=== PATIENT | male | born 1945 | race Caucasian/White ===

== ENCOUNTER 2017-11-11 12:21 | Observation (INO) ==
[2017-11-11 13:59] LABS: Color,Urine Orange (Yellow)
[2017-11-11 14:00] LABS: Clarity,Urine Clear (Clear)
--- NOTE | 2017-11-11 14:01 | Emergency Department Note ---
Disposition Clinical Impression: Diverticulitis Abdominal pain Qualifiers: Abdominal location: generalized Qualified Code(s): R10.84 - Generalized abdominal pain Diarrhea Qualifiers: Diarrhea type: unspecified type Qualified Code(s): R19.7 - Diarrhea, unspecified Disposition: Admitted As Inpatient Condition: Good Referrals: Eula Little CNP [Primary Care Provider] - Forms: ED Satisfaction Letter Time of Disposition: 15:45 General Adult HPI - General Chief complaint: ED Weakness Stated complaint: weakness,diarrhea,abd pain Time Seen by Provider: 11/11/17 13:42 Source: patient Limitations: no limitations Nursing Notes Reviewed: Yes Vital Signs Reviewed: Yes - History of Present Illness HPI Narrative: 10 day history of nonbloody diarrhea. Recent antibiotic use for a UTI. Denies any recent travel or well water consumption. Does have a history of prostate cancer. Also complaining of a 10 day history of abdominal pain. He describes it as a pain. He is unable to discuss it further. Denies any fevers. Does report chilling. No nausea or vomiting. Pain Scale: 7 - Related Data Home Medications Medication Instructions Recorded Confirmed Aspirin [Lo-Dose Aspirin EC] 81 mg PO DAILY 05/03/17 09/12/17 Citalopram Hydrobromide 40 mg PO QPM 05/03/17 09/12/17 [Citalopram HBr] Diphenia 2 mg PO AD 05/03/17 09/12/17 Furosemide [Lasix] 20 mg PO DAILY 05/03/17 09/12/17 Gabapentin [Neurontin] 600 mg PO QPM 05/03/17 09/12/17 Hydroxychloroquine [Plaquenuil] 200 mg PO DAILY 05/03/17 09/12/17 Levothyroxine [Synthroid] 100 mcg PO 0630 05/03/17 09/12/17 Multivitamin [One Daily Essential] 1 each PO DAILY 05/03/17 09/12/17 Omeprazole [PriLOSEC] 20 mg PO DAILY 05/03/17 09/12/17 Potassium 99 mg PO DAILY 05/03/17 09/12/17 Sulfasalazine [Azulfidine] 1,000 mg PO BID 05/03/17 09/12/17 Tramadol HCl [Ultram] 50 mg PO HS PRN 05/03/17 09/12/17 buPROPion HCl [Zyban] 150 mg PO DAILY 05/03/17 09/12/17 clonazePAM [Klonopin] 2 mg PO TID 05/03/17 09/12/17 hydrOXYzine pamoate [HydrOXYzine 25 mg PO TID PRN 05/03/17 09/12/17 Pamoate] traZODone [TraZODone] 50 mg PO HS 05/03/17 09/12/17 Previous Rx's Medication Instructions Recorded Tamsulosin [Flomax] 0.4 mg PO DAILY #30 cap.er.24h 05/03/17 Docusate [Colace] 100 mg PO BID PRN #60 capsule 06/25/17 Polyethylene Glycol 3350 [MiraLAX 1 scoop PO DAILY #510 gm 07/03/17 Powder Bulk 17.9 Oz] Phenazopyridine [Pyridium] 100 mg PO TID PRN #90 tablet 07/17/17 Allergies Allergy/AdvReac Type Severity Reaction Status Date / Time No Known Allergies Allergy Verified 06/03/17 08:42 All systems ED: reviewed and negative except as stated. Constitutional: Reports: chills. Denies: fever Cardiovascular: Denies: chest pain Respiratory: Denies: cough, dyspnea Gastrointestinal: Reports: abdominal pain, diarrhea. Denies: nausea, vomiting, melena, hematochezia Genitourinary: Reports: other (Trouble starting his stream, no burning). Denies : dysuria, hematuria Musculoskeletal: Reports: back pain (Left CVA tenderness) Neurological: Reports: weakness Past Medical History - Past Medical History Attestation: Yes The following information was validated with the patient. Source: patient Medical history: Reports: no medical history Psychiatric history: Reports: depression - Social History Smoking Status: Current every day smoker Smokeless Tobacco Status: No Alcohol use: Reports: occasionally Drug use: Reports: none Physical Exam - General Limitations: other (Patient is very hard of hearing.) General appearance: alert, in distress (Appears in pain) - Head Head exam: atraumatic, normocephalic, normal inspection - Eye Eye exam: Present: normal appearance, PERRL, EOMI. Absent: scleral icterus - ENT ENT exam: normal exam, normal oropharynx, mucous membranes moist - Neck Neck exam: Present: normal inspection, full ROM, trachea midline - Chest Chest inspection: Present: normal inspection, symmetric chest wall rise - Respiratory Respiratory exam: Present: normal lung sounds bilaterally. Absent: respiratory distress, accessory muscle use - Cardiovascular Cardiovascular exam: Present: regular rate, normal rhythm, normal heart sounds - Abdominal Exam Abdominal exam: Present: tenderness, guarding, other (Patient had pain out of proportion on palpation of his abdomen.). Absent: distention - Extremities Exam Extremities exam: Present: normal inspection, full ROM, normal capillary refill. Absent: tenderness, pedal edema - Back Exam Back exam: Present: CVA tenderness (L) - Neurological Exam Neurological exam: Present: alert, oriented X3 - Psychiatric Psychiatric exam: Present: normal affect, normal mood - Skin Skin exam: Present: warm, dry, intact, normal color. Absent: rash, cyanosis, diaphoresis Course Course Narrative: Male patient presenting to the emergency department with a 10 day history of diarrhea. He states that he was on antibiotics for a UTI recently as well as medication to help him urinate. He does have a history of prostate cancer. He states that he does not believe he is taking this medication anymore. As I ask him about his medical history he is unaware of most of it. He states that I need ask "Tere." On exam his lung sounds are clear heart tones are normal. His abdomen is tender to palpation. He has pain out of proportion with exam. He is peritoneal on exam. His abdomen is not rigid however with light palpation hematemesis. He does not appear to be histrionic. He definitely appears to be stoic. We will get basic lab workup and do a CT of patient's abdomen. We will also provide him with a fluid challenge. He states that it said everything he had this morning to get dressed to be able to come into the hospital. He is very hard of hearing. - Reevaluation(s) Reevaluation #1: Patient was exquisitely tender on exam. He has had some relief with the fentanyl. He does have diverticulitis on CT scan. We will start patient on Cipro Flagyl and admitted to the hospital. He will need serial abdominal exams due to his clinical presentation. He is agreeable with this. Time: 15:21 Vital Signs Temperature 98.2 F 11/11/17 12:23 Pulse Rate 77 11/11/17 12:23 Respiratory Rate 18 11/11/17 12:23 Blood Pressure 113/67 11/11/17 12:23 O2 Sat by Pulse Oximetry 95 11/11/17 12:23 Temperature 98.2 F 11/11/17 12:23 Pulse Rate 59 11/11/17 17:13 Respiratory Rate 16 11/11/17 17:13 Blood Pressure 101/56 11/11/17 17:13 O2 Sat by Pulse Oximetry 93 11/11/17 17:13 Oxygen Delivery Oxygen Delivery Room Air Medical Decision Making - Medical Records Medical records reviewed: Yes I reviewed the patient's medical records. - Lab Data Lab results reviewed: Yes I reviewed the patient's lab results. Result diagrams: 11/11/17 13:46 11/11/17 13:46 Lab Results 11/11/17 11/11/17 11/11/17 Range/Units 13:46 13:46 13:46 WBC 6.3 (4.3-11.1) K/mcL RBC 3.90 L (4.19-5.50) M/mcL Hgb 12.6 L (12.9-16.9) g/dL Hct 37.6 (37.5-50.1) % MCV 96.4 (83.0-100.0) fL MCH 32.3 (28.0-33.3) pg MCHC 33.5 (31.6-35.5) g/dL RDW 12.4 (11.5-14.5) % Plt Count 169 (140-400) K/mcL MPV 10.6 (9.4-12.4) fL Immature Gran % 0.2 (0-4) % Seg Neutrophils % 79.2 % Lymphocytes % 11.8 % Monocytes % 8.0 % Eosinophils % 0.5 % Basophils % 0.3 % Neutrophils # 5.0 (1.6-8.9) K/mcL Lymphocytes # 0.7 (0.6-4.6) K/mcL Monocytes # 0.5 (0.0-1.3) K/mcL Eosinophils # 0.0 (0.0-0.6) K/mcL Basophils # 0.0 (0.0-0.2) K/mcL Sodium 135 L (136-145) mEq/L Potassium 4.2 (3.5-5.1) mEq/L Chloride 102 (98-107) mEq/L Carbon Dioxide 23 (23-29) mEq/L BUN 22 (8-23) mg/dL Creatinine 1.71 H (0.70-1.30) mg/dL Est GFR ( Amer) 48 L (> 60) Est GFR (Non-Af Amer) 39 L (> 60) BUN/Creatinine Ratio 13 (6-26) Glucose 90 (70-105) mg/dL Calculated Osmolality 283 (280-300) Lactic Acid (0.5-2.2) mmol/L Calcium 9.5 (8.6-10.3) mg/dL Total Bilirubin 0.8 (0.3-1.0) mg/dL Direct Bilirubin 0.3 H (0.0-0.2) mg/dL Indirect Bilirubin 0.5 (0.0-1.2) mg/dL AST 48 H (13-39) Units/L ALT 30 (7-52) Units/L Alkaline Phosphatase 79 (34-104) Units/L Serum Total Protein 7.3 (6.4-8.9) g/dL Albumin 4.4 (3.5-5.7) g/dL Globulin 2.9 (2.4-3.5) g/dL Albumin/Globulin Ratio 1.5 (1.1-2.2) Lipase 5 L (11-82) Units/L Ur Specimen Adequacy See below A Urine Color [place] A (Yellow) Urine Clarity Clear (Clear) Urine pH TNP Ur Specific [place] TNP Urine Protein TNP Urine Glucose (UA) TNP Urine Ketones TNP Urine Blood TNP Urine Nitrite TNP Urine Bilirubin TNP Urine Urobilinogen TNP Ur Leukocyte Esterase TNP Urine Microscopic RBC 0-3 (0-3) per hpf Urine Microscopic WBC 3-5 H (0-3) per hpf Ur Squamous Epith Cells Few (None-Few) per lpf Urine Bacteria Few (None-Few) per hpf Hyaline Casts Few (None-Few) per lpf 11/11/17 Range/Units 13:46 WBC (4.3-11.1) K/mcL RBC (4.19-5.50) M/mcL Hgb (12.9-16.9) g/dL Hct (37.5-50.1) % MCV (83.0-100.0) fL MCH (28.0-33.3) pg MCHC (31.6-35.5) g/dL RDW (11.5-14.5) % Plt Count (140-400) K/mcL MPV (9.4-12.4) fL Immature Gran % (0-4) % Seg Neutrophils % % Lymphocytes % % Monocytes % % Eosinophils % % Basophils % % Neutrophils # (1.6-8.9) K/mcL Lymphocytes # (0.6-4.6) K/mcL Monocytes # (0.0-1.3) K/mcL Eosinophils # (0.0-0.6) K/mcL Basophils # (0.0-0.2) K/mcL Sodium (136-145) mEq/L Potassium (3.5-5.1) mEq/L Chloride (98-107) mEq/L Carbon Dioxide (23-29) mEq/L BUN (8-23) mg/dL Creatinine (0.70-1.30) mg/dL Est GFR ( Amer) (> 60) Est GFR (Non-Af Amer) (> 60) BUN/Creatinine Ratio (6-26) Glucose (70-105) mg/dL Calculated Osmolality (280-300) Lactic Acid 1.0 (0.5-2.2) mmol/L Calcium (8.6-10.3) mg/dL Total Bilirubin (0.3-1.0) mg/dL Direct Bilirubin (0.0-0.2) mg/dL Indirect Bilirubin (0.0-1.2) mg/dL AST (13-39) Units/L ALT (7-52) Units/L Alkaline Phosphatase (34-104) Units/L Serum Total Protein (6.4-8.9) g/dL Albumin (3.5-5.7) g/dL Globulin (2.4-3.5) g/dL Albumin/Globulin Ratio (1.1-2.2) Lipase (11-82) Units/L Ur Specimen Adequacy Urine Color (Yellow) Urine Clarity (Clear) Urine pH Ur Specific [place] Urine Protein Urine Glucose (UA) Urine Ketones Urine Blood Urine Nitrite Urine Bilirubin Urine Urobilinogen Ur Leukocyte Esterase Urine Microscopic RBC (0-3) per hpf Urine Microscopic WBC (0-3) per hpf Ur Squamous Epith Cells (None-Few) per lpf Urine Bacteria (None-Few) per hpf Hyaline Casts (None-Few) per lpf - Radiology Data Radiology results reviewed: Yes I reviewed the patient's radiology results. Abdomen/Pelvis CT 11/11/17 14:06 IMPRESSION: 1. Acute, uncomplicated sigmoid diverticulitis. 2. No other acute findings in the abdomen or pelvis on this unenhanced study. D/ / Nano Dash MD / Nano Dash MD Interpreting Provider: Nano Dash MD
[2017-11-11] MEDS ORDERED: 0.9 % Sodium Chloride 1,000 ML IVC ONE (14:06)
[2017-11-11 14:09] LABS: Hyaline Casts,Urine Few per lpf (None-Few)
[2017-11-11 14:10] LABS: RBC,Urine 0-3 per hpf (0-3); Squamous Epithelial Cell,Urine Few per lpf (None-Few)
[2017-11-11 14:11] LABS: Bacteria,Urine Few per hpf (None-Few); Basophils % 0.3 %; Eosinophils % 0.5 %; Hematocrit 37.6 % (37.5-50.1); Hemoglobin 12.6 g/dL (12.9-16.9); Immature Granulocytes % 0.2 % (0-4); Lymphocytes # 0.7 K/mcL (0.6-4.6); Lymphocytes % 11.8 %; Mean Corpuscular HGB Conc 33.5 g/dL (31.6-35.5); Mean Corpuscular Hemoglobin 32.3 pg (28.0-33.3); Mean Corpuscular Volume 96.4 fL (83.0-100.0); Mean Platelet Volume 10.6 fL (9.4-12.4); Monocytes # 0.5 K/mcL (0.0-1.3); Platelet Count 169 K/mcL (140-400); Red Cell Distribution Width 12.4 % (11.5-14.5); Segmented Neutrophils % 79.2 %
--- NOTE | 2017-11-11 14:12 | Emergency Department Note ---
Disposition Clinical Impression: Abdominal pain Qualifiers: Abdominal location: generalized Qualified Code(s): R10.84 - Generalized abdominal pain Disposition: Still a Patient Condition: Fair Forms: ED Satisfaction Letter General Adult HPI - General Chief complaint: ED Weakness Stated complaint: weakness,diarrhea,abd pain Time Seen by Provider: 11/11/17 13:42 Source: patient Limitations: no limitations Nursing Notes Reviewed: Yes Vital Signs Reviewed: Yes - History of Present Illness Pain Scale: 7 - Related Data Home Medications Medication Instructions Recorded Confirmed Aspirin [Lo-Dose Aspirin EC] 81 mg PO DAILY 05/03/17 09/12/17 Citalopram Hydrobromide 40 mg PO QPM 05/03/17 09/12/17 [Citalopram HBr] Diphenia 2 mg PO AD 05/03/17 09/12/17 Furosemide [Lasix] 20 mg PO DAILY 05/03/17 09/12/17 Gabapentin [Neurontin] 600 mg PO QPM 05/03/17 09/12/17 Hydroxychloroquine [Plaquenuil] 200 mg PO DAILY 05/03/17 09/12/17 Levothyroxine [Synthroid] 100 mcg PO 0630 05/03/17 09/12/17 Multivitamin [One Daily Essential] 1 each PO DAILY 05/03/17 09/12/17 Omeprazole [PriLOSEC] 20 mg PO DAILY 05/03/17 09/12/17 Potassium 99 mg PO DAILY 05/03/17 09/12/17 Sulfasalazine [Azulfidine] 1,000 mg PO BID 05/03/17 09/12/17 Tramadol HCl [Ultram] 50 mg PO HS PRN 05/03/17 09/12/17 buPROPion HCl [Zyban] 150 mg PO DAILY 05/03/17 09/12/17 clonazePAM [Klonopin] 2 mg PO TID 05/03/17 09/12/17 hydrOXYzine pamoate [HydrOXYzine 25 mg PO TID PRN 05/03/17 09/12/17 Pamoate] traZODone [TraZODone] 50 mg PO HS 05/03/17 09/12/17 Previous Rx's Medication Instructions Recorded Tamsulosin [Flomax] 0.4 mg PO DAILY #30 cap.er.24h 05/03/17 Docusate [Colace] 100 mg PO BID PRN #60 capsule 06/25/17 Polyethylene Glycol 3350 [MiraLAX 1 scoop PO DAILY #510 gm 07/03/17 Powder Bulk 17.9 Oz] Phenazopyridine [Pyridium] 100 mg PO TID PRN #90 tablet 07/17/17 Allergies Allergy/AdvReac Type Severity Reaction Status Date / Time No Known Allergies Allergy Verified 06/03/17 08:42 Past Medical History - Past Medical History Medical history: Reports: no medical history Psychiatric history: Reports: depression - Social History Smoking Status: Current every day smoker Smokeless Tobacco Status: No Alcohol use: Reports: occasionally Drug use: Reports: none Physical Exam - General Limitations: no limitations General appearance: alert Course - Reevaluation(s) Reevaluation #1: ATTESTATION NOTE I examined this patient and my medical decision-making was reviewed with the Resident Physician, RONALD SWIFT. I agree with the documented findings, disposition and treatment plan as described except to the extent set forth below. I have personally performed a face to face evaluation on this patient. I have reviewed and agree with the care plan. Briefly: 72-year-old male Normal disc at the [facility] 10 days of loose stool and increasingly worsening abdominal pain. Exquisitely tender with voluntary guarding and what seems like rebound throughout all 4 quadrants. No distention. Patient has no current vomiting or fever. Abdominal pelvic CT screening labs IV fluids and antiemetics are pending. We are somewhat concerned this patient has a surgical abdomen. He is in a hallway bed at this time. He will be moved into room for further care and evaluation. Disposition pending Time: 14:10 Vital Signs Temperature 98.2 F 11/11/17 12:23 Pulse Rate 77 11/11/17 12:23 Respiratory Rate 18 11/11/17 12:23 Blood Pressure 113/67 11/11/17 12:23 O2 Sat by Pulse Oximetry 95 11/11/17 12:23 Temperature 98.2 F 11/11/17 12:23 Pulse Rate 77 11/11/17 12:23 Respiratory Rate 18 11/11/17 12:23 Blood Pressure 113/67 11/11/17 12:23 O2 Sat by Pulse Oximetry 95 11/11/17 12:23 Oxygen Delivery Oxygen Delivery Room Air Medical Decision Making - Lab Data Lab Results 04/09/18 Range/Units 13:46 Urine Color [place] A (Yellow) Urine Clarity Clear (Clear) Urine pH TNP Ur Specific [place] TNP Urine Protein TNP Urine Glucose (UA) TNP Urine Ketones TNP Urine Blood TNP Urine Nitrite TNP Urine Bilirubin TNP Urine Urobilinogen TNP Ur Leukocyte Esterase TNP
[2017-11-11] MEDS ORDERED: *HR* FentaNYL (PF) 100 MCG/2 ML VIAL IVP ONE (14:16)
[2017-11-11] MEDS ORDERED: Ondansetron 4 MG/2 ML VIAL IVP ONE (14:16)
[2017-11-11 14:43] LABS: Albumin 4.4 g/dL (3.5-5.7); Albumin/Globulin Ratio 1.5 (1.1-2.2); Bilirubin,Direct 0.3 mg/dL (0.0-0.2); Bilirubin,Indirect 0.5 mg/dL (0.0-1.2); Bilirubin,Total 0.8 mg/dL (0.3-1.0); Calcium 9.5 mg/dL (8.6-10.3); Globulin 2.9 g/dL (2.4-3.5); Potassium 4.2 mEq/L (3.5-5.1); Total Protein 7.3 g/dL (6.4-8.9)
[2017-11-11] MEDS ORDERED: MetroNIDAZOLE 500 MG/100 ML 500 MG/100 ML BAG IVPB ONE (15:19)
[2017-11-11] MEDS ORDERED: Ondansetron 4 MG/2 ML VIAL IVP PRN (18:25)
[2017-11-11] MEDS ORDERED: hydrOXYzine pamoate 25 MG CAPSULE PO PRN (18:26)
[2017-11-11] MEDS ORDERED: Naloxone 0.4 MG/ML INJ IVP PRN (18:27)
[2017-11-11] MEDS ORDERED: 0.9 % Sodium Chloride 1,000 ML IVC SCH (18:30)
--- NOTE | 2017-11-11 18:34 | Internal Med History&Physical ---
Date of Encounter: 11/11/17 Time of Encounter: 18:32 Internal Medicine - H&P: HPI Chief complaint: 10 day history of nonbloody diarrhea, diffuse abdominal pain worse in LLQ Admitted From: Home Plans for Post Hospital Care: Home History of present illness: Mr. Leigh is a 72 year old male with no prior medical hx. Presents today to [facility] ED with a 10-day h/o non-bloody diarrhea and diffuse abdominal pain which he reports as being more prevalent in the LLQ. He reports that the pain is constant and sharp but denies any radiation. Denies any aggravating or alleviating factors. He denies any fever, chills, chest pain, nausea, vomiting. CT of the abdomen and pelvis reveals acute uncomplicated sigmoid diverticulitis Past Med Surg Social Fam HX - Past Medical History Medical history: no medical history Psychiatric history: depression - Social History Smoking Status: Current every day smoker Smokeless Tobacco Status: No Alcohol use: occasionally Drug use: none - Family History Mother History Unknown: Yes Internal Medicine - H&P: Meds Aspirin [Lo-Dose Aspirin EC] 81 mg PO DAILY 05/03/17 [History] Citalopram Hydrobromide [Citalopram HBr] 40 mg PO BID 05/03/17 [History] Furosemide [Lasix] 20 mg PO DAILY 05/03/17 [History] Gabapentin [Neurontin] 600 mg PO QPM 05/03/17 [History] Hydroxychloroquine [Plaquenuil] 200 mg PO DAILY 05/03/17 [History] Levothyroxine [Synthroid] 100 mcg PO 0630 05/03/17 [History] Multivitamin [One Daily Essential] 1 each PO DAILY 05/03/17 [History] Omeprazole [PriLOSEC] 20 mg PO DAILY 05/03/17 [History] Potassium 99 mg PO DAILY 05/03/17 [History] Sulfasalazine [Azulfidine] 1,000 mg PO BID 05/03/17 [History] Tamsulosin [Flomax] 0.4 mg PO DAILY #30 cap.er.24h 05/03/17 [Rx] Tramadol HCl [Ultram] 50 mg PO BID PRN 05/03/17 [History] clonazePAM [Klonopin] 2 mg PO TID 05/03/17 [History] hydrOXYzine pamoate [HydrOXYzine Pamoate] 25 mg PO TID PRN 05/03/17 [History] traZODone [TraZODone] 50 mg PO HS 05/03/17 [History] Docusate [Colace] 100 mg PO BID PRN #60 capsule 06/25/17 [Rx] Polyethylene Glycol 3350 [MiraLAX Powder Bulk 17.9 Oz] 1 scoop PO DAILY #510 gm 07/03/17 [Rx] Phenazopyridine [Pyridium] 100 mg PO TID PRN #90 tablet 07/17/17 [Rx] 3 Allergy/AdvReac Type Severity Reaction Status Date / Time No Known Allergies Allergy Verified 06/03/17 08:42 All Systems PM: A 10-system review of systems was performed and is negative for pertinent findings except as documented above in the HPI. Review of systems: REVIEW OF SYSTEMS GENERAL: Negative for any nausea, vomiting, fevers, chills, or weight loss. NEUROLOGIC: Negative for any blurry vision, blind spots, double vision, facial asymmetry, dysphagia, dysarthria, hemiparesis, hemisensory deficits, vertigo, ataxia. HEENT: Negative for any head trauma, neck trauma, neck stiffness, photophobia, phonophobia, sinusitis, rhinitis. CARDIAC: Negative for any chest pain, dyspnea on exertion, paroxysmal nocturnal dyspnea, peripheral edema. PULMONARY: Negative for any shortness of breath, wheezing, COPD, or TB exposure. GASTROINTESTINAL: Negative for any nausea, vomiting, bright red blood per rectum , melena. Positive for diffuse abdominal pain worse and LLQ GENITOURINARY: Negative for any dysuria, hematuria, incontinence. INTEGUMENTARY: Negative for any rashes, cuts, insect bites. RHEUMATOLOGIC: Negative for any joint pains, photosensitive rashes, history of vasculitis or kidney problems. HEMATOLOGIC: Negative for any abnormal bruising, frequent infections or bleeding. - Constitutional Vitals: Temp Pulse Resp BP Pulse Ox 98.2 F 57 16 116/60 94 11/11/17 12:23 11/11/17 18:28 11/11/17 18:28 11/11/17 18:28 11/11/17 18:28 General appearance: Present: cooperative, mild distress, A&O X 3 Exam: PHYSICAL EXAMINATION: GENERAL: The patient is an ill-appearing male in mild distress. He is alert and oriented x3. HEENT: Head is normocephalic and atraumatic. Extraocular muscles are intact. Pupils are equal, round, and reactive to light and accommodation sclera nonicteric. NECK: Supple. No carotid bruits. No lymphadenopathy or thyromegaly. LUNGS: Clear to auscultation. HEART: Regular rate and rhythm without murmur. ABDOMEN: Soft, and nondistended. Positive bowel sounds. No hepatosplenomegaly was noted. Diffuse abdominal tenderness, worse and LLQ abdomen does not appear acute EXTREMITIES: Without extremity swelling, radial pulses 2+ laterally, DP/PT pulses 2+ bilaterally SKIN: No ulceration, rashes, lesions, cyanosis, jaundice Internal Med - H&P Results - Labs CBC & Chem 7: 11/11/17 13:46 11/11/17 13:46 Labs: Short CBC 11/11/17 Range/Units 13:46 WBC 6.3 (4.3-11.1) K/mcL Hgb 12.6 L (12.9-16.9) g/dL Hct 37.6 (37.5-50.1) % Plt Count 169 (140-400) K/mcL Neutrophils # 5.0 (1.6-8.9) K/mcL BMP 11/11/17 13:46 Sodium 135 L Potassium 4.2 Chloride 102 Carbon Dioxide 23 BUN 22 Creatinine 1.71 H Glucose 90 Calcium 9.5 Liver Function 11/11/17 Range/Units 13:46 Total Bilirubin 0.8 (0.3-1.0) mg/dL Direct Bilirubin 0.3 H (0.0-0.2) mg/dL AST 48 H (13-39) Units/L ALT 30 (7-52) Units/L Alkaline Phosphatase 79 (34-104) Units/L Albumin 4.4 (3.5-5.7) g/dL Urine 11/11/17 Range/Units 13:46 Urine Color [place] A (Yellow) Urine Clarity Clear (Clear) Urine pH TNP Ur Specific [place] TNP Urine Protein TNP Urine Glucose (UA) TNP - Impressions ITS Impressions Abdomen/Pelvis CT 11/11/17 14:06 IMPRESSION: 1. Acute, uncomplicated sigmoid diverticulitis. 2. No other acute findings in the abdomen or pelvis on this unenhanced study. D/ / 11/11/2017 15:43:44 Nano Dash MD / bcarthéctor Interpreting Provider: Nano Dash MD - Assessment and plan (1) Diverticulitis Current Visit: Yes Status: Acute Assessment and plan: 10 day history of diarrhea and abdominal pain, worse in the left lower quadrant. Abdomen is not appear acute per my examination. No leukocytosis noted on CBC CT today reveals uncomplicated sigmoid diverticulitis; no other acute findings noted Clear liquid diet IV fluids Antiemetics [place] for pain management Ciprofloxacin 400 mg twice a day Flagyl 500 mg every 8 hours (2) Diarrhea Current Visit: Yes Status: Acute Assessment and plan: 10- day h/o diarrhea, etiology unclear. Denies any recent exotic travel, ill contacts, or recent ABX use. Takes sulfaSALAzine but denies any UC He is mildly hyponatremic otherwise no electrolyte abnormalities. Continue to monitor electrolytes IVF Stool sent for C. difficile-hold off on antidiarrheals until C. difficile workup returns Qualifiers: Diarrhea type: unspecified type Qualified Code(s): R19.7 - Diarrhea, unspecified (3) SERGIO (acute kidney injury) Current Visit: Yes Status: Acute Assessment and plan: Acute kidney injury secondary to dehydration The patient reports 10 day history of diarrhea Continue IV fluids Avoid nephrotoxins BMP in the morning (4) Dehydration Current Visit: Yes Status: Acute (5) DVT prophylaxis Current Visit: Yes Status: Acute Assessment and plan: Heparin 5000 units SC BID - Time Spent With Patient Total time spent is greater than 50% in coordination of care (as documented) at patient's floor/unit and/or counseling patient: 25 - 35 minutes
[2017-11-11] MEDS: *HR* HYDROcodone/Acet 5/325 mg TABLET PO PRN (21:23)
[2017-11-11] MEDS: sulfaSALAzine 500 MG TABLET PO SCH (21:24)
[2017-11-12] MEDS: traZODone 50 MG TABLET PO SCH ×2 (00:16→20:14)
[2017-11-12] MEDS: clonazePAM 1 MG TABLET PO SCH ×4 (00:16→20:14)
[2017-11-12] MEDS: MetroNIDAZOLE 500 MG/100 ML 500 MG/100 ML BAG IVPB SCH ×4 (00:17→23:34)
[2017-11-12 05:31] LABS: Hematocrit 33.2 % (37.5-50.1); Hemoglobin 11.1 g/dL (12.9-16.9); Mean Corpuscular HGB Conc 33.4 g/dL (31.6-35.5); Mean Corpuscular Hemoglobin 32.6 pg (28.0-33.3); Mean Corpuscular Volume 97.6 fL (83.0-100.0); Mean Platelet Volume 10.5 fL (9.4-12.4); Platelet Count 141 K/mcL (140-400); Red Cell Distribution Width 12.4 % (11.5-14.5)
[2017-11-12 05:45] LABS: BUN/Creatinine Ratio 13 (6-26); Blood Urea Nitrogen 18 mg/dL (8-23); Calcium 8.7 mg/dL (8.6-10.3); Carbon Dioxide 25 mEq/L (23-29); Chloride 109 mEq/L (98-107); Glucose 78 mg/dL (70-105); Osmolality,Calculated 289 (280-300); Sodium 139 mEq/L (136-145); eGFR For African Americans > 60 (> 60); eGFR For Non-African Americans 51 (> 60)
[2017-11-12] MEDS: *HR* Heparin 5,000 UNIT/ML VIAL SQ SCH ×2 (06:10→18:00)
[2017-11-12] MEDS: Aspirin Enteric Coated 81 MG Tablet PO SCH (07:59)
[2017-11-12] MEDS: Multivit/Ca/Min/Fe/FA 1 TAB TABLET PO SCH (08:01)
[2017-11-12] MEDS: sulfaSALAzine 500 MG TABLET PO SCH ×2 (08:01→20:14)
[2017-11-12] MEDS ORDERED: (Potassium [Potassium] 99 MG) PO SCH (09:00)
[2017-11-12] MEDS ORDERED: Furosemide 20 MG TABLET PO SCH (09:00)
--- NOTE | 2017-11-12 10:09 | Internal Med Progress Note ---
<Syl Palomino - Last Filed: 11/12/17 13:59> Date of Encounter: 11/12/17 Time of Encounter: 10:50 - Assessment and plan (1) Diverticulitis Current Visit: Yes Status: Acute Assessment and plan: Acute uncomplicated sigmoid diverticulitis demonstrated by abdominal/pelvis CT afebrile, WBC 2.7 He reports improvement but continued abdominal pain. No fever, chills, nausea, vomiting, diarrhea. Abdominal exam was diffusely tender palpation, no guarding, bowel sounds were present. -Flagyl day 2 -Cipro day 2 -He was on clear liquid diet then advance to as tolerated -[place] PRN pain -IVF 125 (2) SERGIO (acute kidney injury) Current Visit: Yes Status: Acute Assessment and plan: SERGIO. Likely prerenal secondary to dehydration creatinine 1.37 (1.71) -Avoid nephrotoxic agents, monitor I&O, IVF (3) Adenocarcinoma of prostate Current Visit: Yes Status: Acute Assessment and plan: Adenocarcinoma of prostate. Completed radiotherapy. Following with Dr. Reyes. (4) Depression Current Visit: Yes Status: Acute Assessment and plan: History of depression controlled with citalopram and Wellbutrin Qualifiers: Qualified Code(s): F32.9 - Major depressive disorder, single episode, unspecified (5) Hypothyroidism Current Visit: Yes Status: Acute Assessment and plan: Hypothyroidism taking Synthroid -continue medication Qualifiers: Qualified Code(s): E03.9 - Hypothyroidism, unspecified (6) Diarrhea Current Visit: Yes Status: Acute Assessment and plan: He reported diarrhea 4x in the past 3 days prior to coming in. He hasn't had any diarrhea since admission. -C.diff testing is ordered Qualifiers: Diarrhea type: unspecified type Qualified Code(s): R19.7 - Diarrhea, unspecified (7) DVT prophylaxis Current Visit: Yes Status: Acute Assessment and plan: Heparin sq - Time Spent With Patient Total time spent is greater than 50% in coordination of care (as documented) at patient's floor/unit and/or counseling patient: - Subjective Interval history: Sitting in bed comfortably alongside his granddaughter. 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 He has not had a bowel movement. He denies fever, chills, nausea, vomiting. - Constitutional Vitals: Temp Pulse Resp BP Pulse Ox 97.6 F 54 14 93/54 94 11/12/17 07:10 11/12/17 07:10 11/12/17 07:10 11/12/17 07:10 11/12/17 07:10 General appearance: Present: cooperative, mild distress, A&O X 3 Exam: Gen.: Vitals noted. No acute distress. AAOx3 HEENT: oropharynx clear, Normocephalic, atraumatic Neck: Supple. No adenopathy. Cardiac: RRR, no murmur, +S1/S2 Pulmonary: CTA bilaterally, no wheezes, rales or rhonchi, equal chest expansion Abdomen: soft, diffuse tender, Bowel sounds noted, no guarding MSK: ROM intact, no joint swelling noted Extremities: no BLE edema, nontender calf, no cyanosis or clubbing Neuro: A&Ox3, moves all extremities, no focal deficits Psych: Appropriate mood and behavior Internal Medicine: Result - Labs CBC & Chem 7: 11/12/17 04:56 11/12/17 04:56 Labs: Short CBC 11/12/17 Range/Units 04:56 WBC 2.7 L D (4.3-11.1) K/mcL Hgb 11.1 L D (12.9-16.9) g/dL Hct 33.2 L (37.5-50.1) % Plt Count 141 (140-400) K/mcL BMP 11/12/17 04:56 Sodium 139 Potassium 4.0 Chloride 109 H Carbon Dioxide 25 BUN 18 Creatinine 1.37 H Glucose 78 Calcium 8.7 Consult Discharge Plan - Plan Referrals: Eula Little, PLANT [employer]ATOR [Primary Care Provider] - <Panfilo Carballo - Last Filed: 11/12/17 14:04> Date of Encounter: 11/12/17 - Assessment and plan (1) Diarrhea Current Visit: Yes Status: Acute Qualifiers: Diarrhea type: unspecified type Qualified Code(s): R19.7 - Diarrhea, unspecified (2) Diverticulitis Current Visit: Yes Status: Acute (3) DVT prophylaxis Current Visit: Yes Status: Acute (4) Dehydration Current Visit: Yes Status: Acute (5) SERGIO (acute kidney injury) Current Visit: Yes Status: Acute - Time Spent With Patient Total time spent is greater than 50% in coordination of care (as documented) at patient's floor/unit and/or counseling patient: - Constitutional Vitals: Temp Pulse Resp BP Pulse Ox 97.6 F 53 16 101/53 92 11/12/17 11:05 11/12/17 11:05 11/12/17 11:05 11/12/17 11:05 11/12/17 11:05 Internal Medicine: Result - Labs CBC & Chem 7: 11/12/17 04:56 11/12/17 04:56 Labs: Short CBC 11/12/17 Range/Units 04:56 WBC 2.7 L D (4.3-11.1) K/mcL Hgb 11.1 L D (12.9-16.9) g/dL Hct 33.2 L (37.5-50.1) % Plt Count 141 (140-400) K/mcL BMP 11/12/17 04:56 Sodium 139 Potassium 4.0 Chloride 109 H Carbon Dioxide 25 BUN 18 Creatinine 1.37 H Glucose 78 Calcium 8.7 - Attending Attestation advance diet as tolerated Increase IVF I examined this patient and my medical decision-making was reviewed with the Resident Physician. I agree with the documented findings, disposition and treatment plan as described except to the extent set forth below.
[2017-11-12] MEDS: Nicotine 21 MG PATCH.TD24 TD SCH (14:54)
[2017-11-12] MEDS: 0.9 % Sodium Chloride 1,000 ML IVC SCH ×2 (14:55→23:34)
[2017-11-12] MEDS: Gabapentin 300 MG CAPSULE PO SCH (17:58)
[2017-11-12] MEDS: *HR* HYDROcodone/Acet 5/325 mg TABLET PO PRN (20:14)
[2017-11-13] MEDS: *HR* Heparin 5,000 UNIT/ML VIAL SQ SCH ×2 (05:25→18:03)
[2017-11-13 05:26] LABS: Basophils % 0.7 %; Eosinophils # 0.1 K/mcL (0.0-0.6); Eosinophils % 1.8 %; Hematocrit 35.6 % (37.5-50.1); Hemoglobin 11.7 g/dL (12.9-16.9); Immature Granulocytes % 0.7 % (0-4); Lymphocytes # 0.8 K/mcL (0.6-4.6); Lymphocytes % 29.4 %; Mean Corpuscular HGB Conc 32.9 g/dL (31.6-35.5); Mean Corpuscular Hemoglobin 32.4 pg (28.0-33.3); Mean Corpuscular Volume 98.6 fL (83.0-100.0); Mean Platelet Volume 10.4 fL (9.4-12.4); Monocytes # 0.4 K/mcL (0.0-1.3); Monocytes % 12.9 %; Neutrophils # 1.5 K/mcL (1.6-8.9); Platelet Count 156 K/mcL (140-400); Red Blood Count 3.61 M/mcL (4.19-5.50); Red Cell Distribution Width 12.2 % (11.5-14.5); Segmented Neutrophils % 54.5 %
[2017-11-13 05:42] LABS: BUN/Creatinine Ratio 10 (6-26); Blood Urea Nitrogen 12 mg/dL (8-23); Calcium 8.6 mg/dL (8.6-10.3); Carbon Dioxide 25 mEq/L (23-29); Chloride 110 mEq/L (98-107); Glucose 84 mg/dL (70-105); Osmolality,Calculated 287 (280-300); Potassium 4.1 mEq/L (3.5-5.1); Sodium 139 mEq/L (136-145); eGFR For African Americans > 60 (> 60); eGFR For Non-African Americans 58 (> 60)
[2017-11-13] MEDS: MetroNIDAZOLE 500 MG/100 ML 500 MG/100 ML BAG IVPB SCH ×3 (08:55→23:24)
[2017-11-13] MEDS: BuPROPion SR (12 HR) 150 MG TABLET PO SCH (08:56)
[2017-11-13] MEDS: Multivit/Ca/Min/Fe/FA 1 TAB TABLET PO SCH (08:57)
[2017-11-13] MEDS: Nicotine 21 MG PATCH.TD24 TD SCH (08:57)
[2017-11-13] MEDS: clonazePAM 1 MG TABLET PO SCH ×3 (08:57→20:05)
[2017-11-13] MEDS: Aspirin Enteric Coated 81 MG Tablet PO SCH (08:57)
--- NOTE | 2017-11-13 09:25 | Internal Med Progress Note ---
<Syl Palomino - Last Filed: 11/13/17 11:15> Date of Encounter: 11/13/17 Time of Encounter: 08:45 - Assessment and plan (1) Diverticulitis Current Visit: Yes Status: Acute Assessment and plan: Acute uncomplicated sigmoid diverticulitis demonstrated by abdominal/pelvis CT afebrile, WBC 2.7 (low but may be secondary to sulfasalazine. Stopped sulfasalazine) He reports improvement but continued abdominal pain. No fever, chills, nausea, vomiting, diarrhea. Abdominal exam was diffusely tender palpation, no guarding, bowel sounds were present. -Flagyl day 3 -Cipro day 3 -tolerating soft diet -[place] PRN pain -will require 10 to 14 days of antibiotics for total duration of treatment. Most likely discharge tomorrow (2) SERGIO (acute kidney injury) Current Visit: Yes Status: Acute Assessment and plan: SERGIO. Likely prerenal secondary to dehydration improving creatinine 1.23 (1.71) -Avoid nephrotoxic agents, monitor I&O, IVF (3) Adenocarcinoma of prostate Current Visit: Yes Status: Acute Assessment and plan: Adenocarcinoma of prostate. Completed radiotherapy. Following with Dr. Reyes. (4) Depression Current Visit: Yes Status: Acute Assessment and plan: istory of depression controlled with citalopram and Wellbutrin Qualifiers: Qualified Code(s): F32.9 - Major depressive disorder, single episode, unspecified (5) DVT prophylaxis Current Visit: Yes Status: Acute Assessment and plan: Heparin SQ (6) Hypothyroidism Current Visit: Yes Status: Acute Assessment and plan: Hypothyroidism taking Synthroid -continue medication Qualifiers: Qualified Code(s): E03.9 - Hypothyroidism, unspecified - Time Spent With Patient Total time spent is greater than 50% in coordination of care (as documented) at patient's floor/unit and/or counseling patient: - Subjective Interval history: Sitting in bed comfortably eating breakfast. She reports improvement in abdominal pain however is press tender smoke signal. He had a bowel movement yesterday and denied hematechezia. He denies fever, chills, nausea, vomiting. - Constitutional Vitals: Temp Pulse Resp BP Pulse Ox 97.6 F 51 15 130/68 93 11/13/17 06:42 11/13/17 06:42 11/13/17 06:42 11/13/17 06:42 11/13/17 06:42 General appearance: Present: cooperative, mild distress, A&O X 3 Exam: Gen.: Vitals noted. No acute distress. AAOx3 HEENT: oropharynx clear, Normocephalic, atraumatic Neck: Supple. No adenopathy. Cardiac: RRR, no murmur, +S1/S2 Pulmonary: CTA bilaterally, no wheezes, rales or rhonchi, equal chest expansion Abdomen: soft, diffuse tender, Bowel sounds noted, no guarding, nondistended MSK: ROM intact, no joint swelling noted Extremities: no BLE edema, nontender calf, Neuro: A&Ox3, moves all extremities, no focal deficits Psych: Appropriate mood and behavior Internal Medicine: Result - Labs CBC & Chem 7: 11/13/17 04:47 11/13/17 04:47 Labs: Short CBC 11/13/17 Range/Units 04:47 WBC 2.7 L (4.3-11.1) K/mcL Hgb 11.7 L (12.9-16.9) g/dL Hct 35.6 L (37.5-50.1) % Plt Count 156 (140-400) K/mcL Neutrophils # 1.5 L (1.6-8.9) K/mcL BMP 11/13/17 04:47 Sodium 139 Potassium 4.1 Chloride 110 H Carbon Dioxide 25 BUN 12 Creatinine 1.23 Glucose 84 Calcium 8.6 Consult Discharge Plan - Plan Referrals: Eula Little, BRAKE TESTER [Primary Care Provider] - <Panfilo Carballo - Last Filed: 11/13/17 13:10> Date of Encounter: 11/13/17 - Assessment and plan (1) Diverticulitis Current Visit: Yes Status: Acute (2) DVT prophylaxis Current Visit: Yes Status: Acute (3) SERGIO (acute kidney injury) Current Visit: Yes Status: Acute (4) Adenocarcinoma of prostate Current Visit: Yes Status: Acute (5) Depression Current Visit: Yes Status: Acute Qualifiers: Qualified Code(s): F32.9 - Major depressive disorder, single episode, unspecified (6) Hypothyroidism Current Visit: Yes Status: Acute Qualifiers: Qualified Code(s): E03.9 - Hypothyroidism, unspecified - Time Spent With Patient Total time spent is greater than 50% in coordination of care (as documented) at patient's floor/unit and/or counseling patient: - Constitutional Vitals: Temp Pulse Resp BP Pulse Ox 97.5 F L 63 15 106/60 95 11/13/17 10:50 11/13/17 10:50 11/13/17 10:50 11/13/17 10:50 11/13/17 10:50 Internal Medicine: Result - Labs CBC & Chem 7: 11/13/17 04:47 11/13/17 04:47 Labs: Short CBC 11/13/17 Range/Units 04:47 WBC 2.7 L (4.3-11.1) K/mcL Hgb 11.7 L (12.9-16.9) g/dL Hct 35.6 L (37.5-50.1) % Plt Count 156 (140-400) K/mcL Neutrophils # 1.5 L (1.6-8.9) K/mcL BMP 11/13/17 04:47 Sodium 139 Potassium 4.1 Chloride 110 H Carbon Dioxide 25 BUN 12 Creatinine 1.23 Glucose 84 Calcium 8.6 - Attending Attestation Neutropenia, possible exacerbated by Sulfasalazine repeat CBC in AM , may switch to cefepime if drops below 0.5 hold sulfasalazine advance diet as tolerated IVF I examined this patient and my medical decision-making was reviewed with the Resident Physician. I agree with the documented findings, disposition and treatment plan as described except to the extent set forth below.
[2017-11-13] MEDS: *HR* HYDROcodone/Acet 5/325 mg TABLET PO PRN (15:25)
[2017-11-13] MEDS: Gabapentin 300 MG CAPSULE PO SCH (18:04)
[2017-11-13] MEDS: traZODone 50 MG TABLET PO SCH (20:05)
[2017-11-14 05:16] LABS: Basophils % 0.6 %; Eosinophils # 0.1 K/mcL (0.0-0.6); Eosinophils % 1.9 %; Hematocrit 33.9 % (37.5-50.1); Hemoglobin 11.4 g/dL (12.9-16.9); Immature Granulocytes % 0.6 % (0-4); Lymphocytes # 0.8 K/mcL (0.6-4.6); Lymphocytes % 26.2 %; Mean Corpuscular HGB Conc 33.6 g/dL (31.6-35.5); Mean Corpuscular Hemoglobin 32.6 pg (28.0-33.3); Mean Corpuscular Volume 96.9 fL (83.0-100.0); Mean Platelet Volume 10.5 fL (9.4-12.4); Monocytes # 0.4 K/mcL (0.0-1.3); Monocytes % 13.1 %; Neutrophils # 1.9 K/mcL (1.6-8.9); Platelet Count 146 K/mcL (140-400); Red Cell Distribution Width 12.3 % (11.5-14.5); Segmented Neutrophils % 57.6 %
[2017-11-14 05:34] LABS: BUN/Creatinine Ratio 12 (6-26); Blood Urea Nitrogen 14 mg/dL (8-23); Calcium 8.8 mg/dL (8.6-10.3); Carbon Dioxide 26 mEq/L (23-29); Chloride 110 mEq/L (98-107); Glucose 100 mg/dL (70-105); Osmolality,Calculated 289 (280-300); Potassium 3.9 mEq/L (3.5-5.1); Sodium 139 mEq/L (136-145); eGFR For African Americans > 60 (> 60); eGFR For Non-African Americans 59 (> 60)
[2017-11-14] MEDS: *HR* Heparin 5,000 UNIT/ML VIAL SQ SCH (05:36)
[2017-11-14] MEDS ORDERED: 0.9 % Sodium Chloride 1,000 ML IVC SCH (07:15)
[2017-11-14] MEDS: Multivit/Ca/Min/Fe/FA 1 TAB TABLET PO SCH (07:56)
[2017-11-14] MEDS: MetroNIDAZOLE 500 MG/100 ML 500 MG/100 ML BAG IVPB SCH (07:56)
[2017-11-14] MEDS: BuPROPion SR (12 HR) 150 MG TABLET PO SCH (07:57)
[2017-11-14] MEDS: Nicotine 21 MG PATCH.TD24 TD SCH (07:57)
[2017-11-14] MEDS: Aspirin Enteric Coated 81 MG Tablet PO SCH (07:57)
[2017-11-14] MEDS: clonazePAM 1 MG TABLET PO SCH (07:58)
--- NOTE | 2017-11-14 08:11 | Discharge Summary ---
<Syl Palomino - Last Filed: 11/14/17 11:14> Date of Encounter: 11/14/17 Time of Encounter: 08:06 - Discharge Diagnosis (1) Diverticulitis Priority: Primary Status: Acute (2) SERGIO (acute kidney injury) Priority: Secondary Status: Acute (3) Adenocarcinoma of prostate Priority: Secondary Status: Acute (4) Depression Priority: Secondary Status: Acute Qualifiers: Qualified Code(s): F32.9 - Major depressive disorder, single episode, unspecified (5) DVT prophylaxis Priority: Secondary Status: Acute (6) Hypothyroidism Priority: Secondary Status: Acute Qualifiers: Qualified Code(s): E03.9 - Hypothyroidism, unspecified Hospital course: Mr. Leigh is a 72 year old male with no prior medical hx. Presents today to [facility] ED with a 10-day h/o non-bloody diarrhea and diffuse abdominal pain which he reports as being more prevalent in the LLQ. He reports that the pain is constant and sharp but denies any radiation. Denies any aggravating or alleviating factors. He denies any fever, chills, chest pain, nausea, vomiting. CT of the abdomen and pelvis reveals acute uncomplicated sigmoid diverticulitis. He was an admitted and started on IV ciprofloxacin and Flagyl. He was given a clear liquid diet. Over the course of his stay his abdominal pain continue to improve a tolerated liquid diet transition to soft diet well. He tested negative for C.diff due to his complaints of diarrhea prior to his admission. His white blood cell count was decreased below normal however he was on sulfasalazine for his rheumatoid arthritis in this medication was held, after which is white blood cell count increased. Upon discharge he is afebrile , white blood cell count improving. He denied abdominal pain, nausea, vomiting , fever, chills. He was counseled on smoking cessation and was adamant about he will not stop smoking. He was instructed to continue to finish his antibiotics and to follow-up with his PCP in a week or 2. He was instructed to not take his sulfasalazine for one week. He was instructed to return to the hospital should he develop fever, chills, worsen abdominal pain. He is alert and oriented times 3 with full capacity and stated clear understanding the treatment plan. Time spent discussing smoking cessation with patient: more than 10 minutes - Time Spent with Patient Total time spent providing and/or coordinating discharge services: Greater than 30 minutes - Discharge Medications Prescriptions: Ciprofloxacin [Cipro] 500 mg PO BID #7 tablet metroNIDAZOLE [Metronidazole] 500 mg PO Q8H #11 tablet Home Medications: Aspirin [Lo-Dose Aspirin EC] 81 mg PO DAILY 05/03/17 [History] Citalopram Hydrobromide [Citalopram HBr] 40 mg PO BID 05/03/17 [History] Furosemide [Lasix] 20 mg PO DAILY 05/03/17 [History] Gabapentin [Neurontin] 600 mg PO QPM 05/03/17 [History] Hydroxychloroquine [Plaquenuil] 200 mg PO DAILY 05/03/17 [History] Levothyroxine [Synthroid] 100 mcg PO 0630 05/03/17 [History] Multivitamin [One Daily Essential] 1 each PO DAILY 05/03/17 [History] Omeprazole [PriLOSEC] 20 mg PO DAILY 05/03/17 [History] Potassium 99 mg PO DAILY 05/03/17 [History] Sulfasalazine [Azulfidine] 1,000 mg PO BID 05/03/17 [History] Tamsulosin [Flomax] 0.4 mg PO DAILY #30 cap.er.24h 05/03/17 [Rx] Tramadol HCl [Ultram] 50 mg PO BID PRN 05/03/17 [History] clonazePAM [Klonopin] 2 mg PO TID 05/03/17 [History] hydrOXYzine pamoate [HydrOXYzine Pamoate] 25 mg PO TID PRN 05/03/17 [History] traZODone [TraZODone] 50 mg PO HS 05/03/17 [History] Docusate [Colace] 100 mg PO BID PRN #60 capsule 06/25/17 [Rx] Polyethylene Glycol 3350 [MiraLAX Powder Bulk 17.9 Oz] 1 scoop PO DAILY #510 gm 07/03/17 [Rx] Phenazopyridine [Pyridium] 100 mg PO TID PRN #90 tablet 07/17/17 [Rx] BuPROPion SR (12 HR) [Wellbutrin SR] 150 mg PO DAILY 11/12/17 [History] Ciprofloxacin [Cipro] 500 mg PO BID #7 tablet 11/14/17 [Rx] metroNIDAZOLE [Metronidazole] 500 mg PO Q8H #11 tablet 11/14/17 [Rx] Allergies/Adverse Reactions: 3 Allergy/AdvReac Type Severity Reaction Status Date / Time No Known Allergies Allergy Verified 06/03/17 08:42 Date of admission: 11/11/17 18:54 Primary care physician: Eula Little CNP Discharging clinician: Panfilo Carballo Anticipated date of discharge: 11/14/17 - Constitutional Vitals: Temp Pulse Resp BP Pulse Ox 97.4 F L 50 18 130/74 93 11/14/17 07:11 11/14/17 07:11 11/14/17 07:11 11/14/17 07:11 11/14/17 07:11 General appearance: Present: cooperative, mild distress, A&O X 3 Exam: Gen.: Vitals noted. No acute distress. AAOx3 HEENT: oropharynx clear, Normocephalic, atraumatic Cardiac: RRR, no murmur, +S1/S2 Pulmonary: CTA bilaterally, no wheezes, rales or rhonchi, equal chest expansion Abdomen: soft, nontender, Bowel sounds noted, no guarding, slightly distended MSK: ROM intact, no joint swelling noted Extremities: no BLE edema, nontender calf, no cyanosis or clubbing Neuro: A&Ox3, moves all extremities, no focal deficits Psych: Appropriate mood and behavior - Patient Status Disposition: Home, Self-Care Condition: Good Functional capacity at discharge: independent ambulation Overall status at discharge: patient is progressing back to baseline - Discharge Instructions Instructions: Diverticulitis (DC) Follow Up With: Eula Little CNP [Primary Care Provider] - (Office will only make appointments for the patient himself. Patient instructed to call for appointment. Thank you) Additional Instructions: Finish antibiotics to completion take Tylenol as needed for pain follow-up with his PCP in a week or 2 do not take sulfasalazine for one week He was instructed to return to the hospital should he develop fever, chills, worsen abdominal pain - Diet and Activity Activity: resume usual activities as tolerated Diet: other (Low-fat, low lactulose diet) <Panfilo Carballo - Last Filed: 11/14/17 16:19> Date of Encounter: 11/14/17 - Discharge Diagnosis (1) Diverticulitis Status: Acute (2) DVT prophylaxis Status: Acute (3) SERGIO (acute kidney injury) Status: Acute (4) Adenocarcinoma of prostate Status: Acute (5) Depression Status: Acute Qualifiers: Qualified Code(s): F32.9 - Major depressive disorder, single episode, unspecified (6) Hypothyroidism Status: Acute Qualifiers: Qualified Code(s): E03.9 - Hypothyroidism, unspecified Hospital course: Mr. Leigh is a 72 year old male - Time Spent with Patient Total time spent providing and/or coordinating discharge services: Date of admission: 11/11/17 18:54 Primary care physician: Eula Little CNP - Constitutional Vitals: Temp Pulse Resp BP Pulse Ox 97.6 F 61 18 95/56 98 11/14/17 10:22 11/14/17 10:22 11/14/17 10:22 11/14/17 10:22 11/14/17 10:22 - Attending Attestation acute diverticulitis Neutropenia, possible exacerbated by Sulfasalazine hold sulfasalazine for 1 week complete doses of Cipro and flagyl time spent : 40 min I examined this patient and my medical decision-making was reviewed with the Resident Physician. I agree with the documented findings, disposition and treatment plan as described except to the extent set forth below.
[2017-11-14 10:24] VITALS: BP 95/56
== END 2017-11-14 12:34 | disposition home or self-care (01) | DRG 392 ==
LOC: EMEROO 12:21 → 3ANU 18:54 → INTOOBSV 18:54 → 3ANU 19:00
PROVIDERS: ADMIT Internal Medicine Cardiovascular Disease; ATTEND Internal Medicine

== ENCOUNTER 2021-02-21 15:02 | Inpatient (IN) ==
[2021-02-21] MEDS ORDERED: 0.9 % Sodium Chloride 1,000 ML IVC ONE (15:14)
[2021-02-21] MEDS ORDERED: Isovue-370 500 ML BOTTLE IVP ONE (15:19)
[2021-02-21 16:04] LABS: Hematocrit 33.4 % (37.5-50.1); Hemoglobin 10.9 g/dL (12.9-16.9); Immature Platelets 4.7 % (1.1-6.1); Lymphocytes % 82.7 %; Mean Corpuscular HGB Conc 32.6 g/dL (31.6-35.5); Mean Corpuscular Volume 94.9 fL (83.0-100.0); Mean Platelet Volume 10.2 fL (9.4-12.4); Monocytes % 14.4 %; Platelet Count 128 K/mcL (140-400); Red Blood Count 3.52 M/mcL (4.19-5.50); Red Cell Distribution Width 14.2 % (11.5-14.5); Segmented Neutrophils % 0.9 %
[2021-02-21 16:09] LABS: INR 1.2; Prothrombin Time 13.8 Seconds (9.4-12.1)
[2021-02-21 16:12] LABS: Activated Partial Thrombo Time 27.6 Seconds (26.0-36.0)
[2021-02-21 16:15] LABS: Lymphocytes # 0.8 K/mcL (0.6-4.6); Monocytes # 0.1 K/mcL (0.0-1.3)
[2021-02-21 16:19] LABS: Platelet Estimate Decreased (Normal); Reactive Lymphocytes Present (Not Present)
[2021-02-21 16:23] LABS: Alanine Aminotransferase 44 Units/L (7-52); Albumin 3.7 g/dL (3.5-5.7); Alkaline Phosphatase 86 Units/L (34-104); Aspartate Amino Transferase 36 Units/L (13-39); BUN/Creatinine Ratio 15 (6-26); Bilirubin,Direct 0.3 mg/dL (0.0-0.2); Bilirubin,Indirect 0.7 mg/dL (0.0-1.0); Blood Urea Nitrogen 17 mg/dL (8-23); Calcium 9.1 mg/dL (8.6-10.3); Carbon Dioxide 22 mEq/L (23-29); Chloride 104 mEq/L (98-107); Globulin 3.6 g/dL (2.4-3.5); Glucose 99 mg/dL (70-105); Lipase 18 Units/L (11-82); Magnesium 1.7 mg/dL (1.6-2.6); Osmolality,Calculated 280 (280-300); Phosphorous 2.3 mg/dL (2.7-4.5); Potassium 3.9 mEq/L (3.5-5.1); Sodium 134 mEq/L (136-145); Total Protein 7.3 g/dL (6.4-8.9); Troponin I < 0.03 ng/mL (< 0.04); eGFR For African Americans > 60 (> 60); eGFR For Non-African Americans > 60 (> 60)
[2021-02-21 20:01] LABS: Bilirubin,Urine Negative (Negative); Blood,Urine Negative (Negative); Clarity,Urine Clear (Clear); Color,Urine Yellow (Yellow); Glucose,Urine (UA) Normal (Normal); Ketones,Urine Negative (Negative); Leukocyte Esterase,Urine Negative (Negative); Nitrite,Urine Negative (Negative); Protein,Urine Trace mg/dL (Neg-Trace); Specific Gravity,Urine 1.027 (1.010-1.025); Urobilinogen,Urine Normal (Normal)
[2021-02-21] MEDS ORDERED: Cefepime HCl 2,000 MG in Water for inj. (sterile) 20 ML IVP ONE (21:00)
[2021-02-21] MEDS ORDERED: Naloxone 0.4 MG/ML INJ IVP PRN (21:32)
[2021-02-21] MEDS ORDERED: *HR* Promethazine 25 MG/ML VIAL IM PRN (21:32)
[2021-02-21] MEDS ORDERED: Ondansetron 4 MG/2 ML VIAL IVP PRN (21:32)
[2021-02-22] MEDS: Melatonin 3 MG TABLET PO PRN (01:51)
[2021-02-22 02:04] LABS: Hematocrit 30.5 % (37.5-50.1); Hemoglobin 9.8 g/dL (12.9-16.9); Immature Granulocytes % 1.2 % (0-4); Immature Platelets 4.2 % (1.1-6.1); Lymphocytes # 0.6 K/mcL (0.6-4.6); Lymphocytes % 77.8 %; Mean Corpuscular HGB Conc 32.1 g/dL (31.6-35.5); Mean Corpuscular Hemoglobin 30.6 pg (28.0-33.3); Mean Corpuscular Volume 95.3 fL (83.0-100.0); Mean Platelet Volume 9.7 fL (9.4-12.4); Monocytes # 0.2 K/mcL (0.0-1.3); Monocytes % 18.5 %; Nucleated Red Blood Cells 2.5 /100 WBC (0); Platelet Count 112 K/mcL (140-400); Red Cell Distribution Width 14.2 % (11.5-14.5); Segmented Neutrophils % 2.5 %
[2021-02-22 02:06] LABS: INR 1.3; Prothrombin Time 15.2 Seconds (9.4-12.1)
[2021-02-22 02:19] LABS: White Blood Count 0.8 K/mcL (4.3-11.1)
[2021-02-22 02:22] LABS: BUN/Creatinine Ratio 13 (6-26); Blood Urea Nitrogen 14 mg/dL (8-23); Calcium 8.4 mg/dL (8.6-10.3); Carbon Dioxide 23 mEq/L (23-29); Chloride 108 mEq/L (98-107); Glucose 125 mg/dL (70-105); Magnesium 1.6 mg/dL (1.6-2.6); Osmolality,Calculated 284 (280-300); Potassium 3.7 mEq/L (3.5-5.1); Sodium 136 mEq/L (136-145); eGFR For African Americans > 60 (> 60); eGFR For Non-African Americans > 60 (> 60)
[2021-02-22 02:29] LABS: Iron 20 mcg/dL (65-175)
[2021-02-22 02:36] LABS: % Iron Saturation 7 % (20-55); Transferrin 204 mg/dL (203-362)
[2021-02-22 02:38] LABS: Platelet Estimate Decreased (Normal); Reactive Lymphocytes Present (Not Present)
[2021-02-22 02:47] LABS: Ferritin 192 ng/mL (20-250)
[2021-02-22 05:48] LABS: Immature Reticulocyte % 12.6 % (11.0-38.0); Retculocyte # 0.05 M/mcL (0.05-0.10); Reticulocyte % 1.5 % (1.6-2.8)
[2021-02-22] MEDS: *HR* Enoxaparin 40 MG/0.4 ML SYRINGE SQ SCH (06:14)
[2021-02-22 06:17] LABS: Folate 10.9 ng/mL (3.0-16.0)
[2021-02-22 06:20] LABS: Vitamin B12 > 1500 pg/mL (250-1100)
[2021-02-22] MEDS: Cefepime HCl 2,000 MG in Water for inj. (sterile) 20 ML IVP SCH ×2 (06:20→12:19)
[2021-02-22] MEDS ORDERED: Vancomycin 1,250 MG/262.5 ML IV.SOLN IVPB SCH (10:00)
[2021-02-22] MEDS ORDERED: Mag Hydrox/Al Hydrox/Simeth 30 ML UDC PO PRN (14:17)
[2021-02-22] MEDS ORDERED: Diphenoxylate/Atropine 1 TAB TABLET PO PRN (16:15)
[2021-02-22] MEDS: *HR* HYDROcodone/Acet 5/325 mg TABLET PO PRN (19:49)
[2021-02-22] MEDS: Gabapentin 300 MG CAPSULE PO SCH (19:49)
[2021-02-22] MEDS: clonazePAM 1 MG TABLET PO SCH (19:50)
[2021-02-22] MEDS ORDERED: Ketorolac 15 MG/ML VIAL IVP ONE (20:09)
[2021-02-22] MEDS ORDERED: traZODone 50 MG TABLET PO SCH (21:00)
[2021-02-22] MEDS ORDERED: sulfaSALAzine 500 MG TABLET PO SCH (21:00)
[2021-02-23 01:56] LABS: Red Blood Count 3.78 M/mcL (4.19-5.50)
[2021-02-23 01:58] LABS: Hematocrit 36.1 % (37.5-50.1); Hemoglobin 11.7 g/dL (12.9-16.9); Immature Platelets 5.2 % (1.1-6.1); Mean Corpuscular HGB Conc 32.4 g/dL (31.6-35.5); Mean Corpuscular Volume 95.5 fL (83.0-100.0); Mean Platelet Volume 10.4 fL (9.4-12.4); Red Cell Distribution Width 14.1 % (11.5-14.5)
[2021-02-23] MEDS: *HR* HYDROcodone/Acet 5/325 mg TABLET PO PRN ×2 (02:02→20:38)
[2021-02-23 02:13] LABS: Alanine Aminotransferase 34 Units/L (7-52); Albumin 3.5 g/dL (3.5-5.7); Albumin/Globulin Ratio 0.9 (1.1-2.2); Alkaline Phosphatase 80 Units/L (34-104); Aspartate Amino Transferase 29 Units/L (13-39); BUN/Creatinine Ratio 13 (6-26); Bilirubin,Total 0.9 mg/dL (0.3-1.0); Blood Urea Nitrogen 15 mg/dL (8-23); Calcium 8.8 mg/dL (8.6-10.3); Carbon Dioxide 24 mEq/L (23-29); Chloride 105 mEq/L (98-107); Globulin 3.9 g/dL (2.4-3.5); Glucose 90 mg/dL (70-105); Osmolality,Calculated 282 (280-300); Potassium 3.9 mEq/L (3.5-5.1); Sodium 136 mEq/L (136-145); Total Protein 7.4 g/dL (6.4-8.9); eGFR For African Americans > 60 (> 60); eGFR For Non-African Americans > 60 (> 60)
[2021-02-23] MEDS: Acetaminophen 325 MG TABLET PO PRN (04:36)
[2021-02-23] MEDS: *HR* Enoxaparin 40 MG/0.4 ML SYRINGE SQ SCH (06:00)
[2021-02-23] MEDS: Loratadine 10 MG TABLET PO SCH (08:12)
[2021-02-23] MEDS: Aspirin Enteric Coated 81 MG Tablet PO SCH (08:12)
[2021-02-23] MEDS: clonazePAM 1 MG TABLET PO SCH ×3 (08:12→20:38)
[2021-02-23] MEDS: cefTRIAXone 1,000 MG in Water for inj. (sterile) 10 ML IVP SCH (08:12)
[2021-02-23] MEDS ORDERED: BuPROPion XL (24 HR) 150 MG TABLET PO SCH (09:00)
[2021-02-23] MEDS ORDERED: Venlafaxine XR (24 HR) 75 MG CAP.ER.24H PO SCH (09:00)
[2021-02-23] MEDS ORDERED: Vancomycin 1,250 MG/262.5 ML IV.SOLN IVPB SCH (10:00)
[2021-02-23] MEDS ORDERED: 0.9 % Sodium Chloride 500 ML ONE (11:16)
[2021-02-23] MEDS ORDERED: *HR* FentaNYL (PF) 100 MCG/2 ML VIAL IVP ONE (11:25)
[2021-02-23] MEDS ORDERED: *HR* Midazolam HCl 2 MG/2 ML VIAL IVP ONE (11:25)
[2021-02-23] MEDS ORDERED: *HR* Midazolam HCl 2 MG/2 ML VIAL ONE (11:33)
[2021-02-23] MEDS ORDERED: *HR* FentaNYL (PF) 100 MCG/2 ML VIAL ONE (11:33)
[2021-02-23] MEDS: *HR* OxyCODONE Immed Rel 5 MG TABLET PO PRN (12:12)
[2021-02-23] MEDS ORDERED: traZODone 50 MG TABLET PO PRN (13:47)
[2021-02-23] MEDS: Gabapentin 300 MG CAPSULE PO SCH (20:38)
[2021-02-24 02:23] LABS: Mean Platelet Volume 10.2 fL (9.4-12.4); Red Cell Distribution Width 13.8 % (11.5-14.5)
[2021-02-24 02:24] LABS: Hematocrit 31.7 % (37.5-50.1); Hemoglobin 10.7 g/dL (12.9-16.9); Mean Corpuscular HGB Conc 33.8 g/dL (31.6-35.5); Mean Corpuscular Hemoglobin 32.1 pg (28.0-33.3); Mean Corpuscular Volume 95.2 fL (83.0-100.0); Platelet Count 115 K/mcL (140-400); Red Blood Count 3.33 M/mcL (4.19-5.50)
[2021-02-24 02:30] LABS: White Blood Count 1.1 K/mcL (4.3-11.1)
[2021-02-24 02:51] LABS: Alanine Aminotransferase 23 Units/L (7-52); Albumin 3.3 g/dL (3.5-5.7); Alkaline Phosphatase 70 Units/L (34-104); Aspartate Amino Transferase 25 Units/L (13-39); BUN/Creatinine Ratio 13 (6-26); Bilirubin,Total 1.1 mg/dL (0.3-1.0); Blood Urea Nitrogen 16 mg/dL (8-23); Calcium 8.3 mg/dL (8.6-10.3); Carbon Dioxide 20 mEq/L (23-29); Chloride 103 mEq/L (98-107); Globulin 3.4 g/dL (2.4-3.5); Glucose 105 mg/dL (70-105); Osmolality,Calculated 274 (280-300); Sodium 131 mEq/L (136-145); Total Protein 6.7 g/dL (6.4-8.9); eGFR For African Americans > 60 (> 60); eGFR For Non-African Americans 59 (> 60)
[2021-02-24] MEDS: *HR* Enoxaparin 40 MG/0.4 ML SYRINGE SQ SCH (05:32)
[2021-02-24] MEDS: Acetaminophen 325 MG TABLET PO PRN ×2 (08:33→19:57)
[2021-02-24] MEDS: cefTRIAXone 1,000 MG in Water for inj. (sterile) 10 ML IVP SCH (08:34)
[2021-02-24] MEDS: Venlafaxine XR (24 HR) 75 MG CAP.ER.24H PO SCH (08:35)
[2021-02-24] MEDS: clonazePAM 1 MG TABLET PO SCH ×3 (08:35→19:57)
[2021-02-24] MEDS: Loratadine 10 MG TABLET PO SCH (08:35)
[2021-02-24] MEDS: Aspirin Enteric Coated 81 MG Tablet PO SCH (08:35)
[2021-02-24] MEDS: BuPROPion XL (24 HR) 150 MG TABLET PO SCH (08:36)
[2021-02-24] MEDS: Vancomycin 1,250 MG/262.5 ML IV.SOLN IVPB SCH (16:16)
[2021-02-24] MEDS: Gabapentin 300 MG CAPSULE PO SCH (19:57)
[2021-02-24] MEDS: Melatonin 3 MG TABLET PO PRN (23:48)
[2021-02-24] MEDS: *HR* OxyCODONE Immed Rel 5 MG TABLET PO PRN (23:48)
[2021-02-25 03:03] LABS: Monocytes # 0.2 K/mcL (0.0-1.3); Monocytes % 21.6 %
[2021-02-25 03:04] LABS: Basophils % 1.1 %; Hematocrit 31.1 % (37.5-50.1); Hemoglobin 9.9 g/dL (12.9-16.9); Lymphocytes # 0.7 K/mcL (0.6-4.6); Lymphocytes % 76.1 %; Mean Corpuscular HGB Conc 31.8 g/dL (31.6-35.5); Mean Corpuscular Hemoglobin 30.6 pg (28.0-33.3); Mean Platelet Volume 10.3 fL (9.4-12.4); Platelet Count 114 K/mcL (140-400); Red Blood Count 3.24 M/mcL (4.19-5.50); Red Cell Distribution Width 13.6 % (11.5-14.5); Segmented Neutrophils % 1.2 %
[2021-02-25 03:26] LABS: Alanine Aminotransferase 23 Units/L (7-52); Albumin/Globulin Ratio 0.9 (1.1-2.2); Alkaline Phosphatase 74 Units/L (34-104); Aspartate Amino Transferase 26 Units/L (13-39); BUN/Creatinine Ratio 15 (6-26); Bilirubin,Total 0.9 mg/dL (0.3-1.0); Blood Urea Nitrogen 18 mg/dL (8-23); Carbon Dioxide 22 mEq/L (23-29); Chloride 104 mEq/L (98-107); Globulin 3.4 g/dL (2.4-3.5); Glucose 97 mg/dL (70-105); Osmolality,Calculated 276 (280-300); Potassium 4.2 mEq/L (3.5-5.1); Sodium 132 mEq/L (136-145); Total Protein 6.4 g/dL (6.4-8.9); eGFR For African Americans > 60 (> 60); eGFR For Non-African Americans > 60 (> 60)
[2021-02-25 03:37] LABS: White Blood Count 0.9 K/mcL (4.3-11.1)
[2021-02-25 03:39] LABS: Platelet Estimate Slight Decrease (Normal)
[2021-02-25] MEDS: *HR* Enoxaparin 40 MG/0.4 ML SYRINGE SQ SCH (03:39)
[2021-02-25] MEDS: *HR* HYDROcodone/Acet 5/325 mg TABLET PO PRN (05:21)
[2021-02-25] MEDS: Aspirin Enteric Coated 81 MG Tablet PO SCH (09:25)
[2021-02-25] MEDS: Loratadine 10 MG TABLET PO SCH (09:25)
[2021-02-25] MEDS: clonazePAM 1 MG TABLET PO SCH ×3 (09:25→20:05)
[2021-02-25] MEDS: BuPROPion XL (24 HR) 150 MG TABLET PO SCH (09:26)
[2021-02-25] MEDS: Venlafaxine XR (24 HR) 75 MG CAP.ER.24H PO SCH (09:26)
[2021-02-25] MEDS: cefTRIAXone 1,000 MG in Water for inj. (sterile) 10 ML IVP SCH (09:27)
[2021-02-25] MEDS ORDERED: *HR* Metoprolol 5 MG/5 ML VIAL IVP ONE (10:31)
[2021-02-25 12:53] LABS: Adenovirus Not Detected (Not Detect); Bordetella Pertussis Not Detected (Not Detect); Chlamydophila pneumoniae Not Detected (Not Detect); Coronavirus 229E Not Detected (Not Detect); Coronavirus HKU1 Not Detected (Not Detect); Coronavirus NL63 Not Detected (Not Detect); Coronavirus OC43 Not Detected (Not Detect); Human Metapneumovirus Not Detected (Not Detect); Human Rhinovirus/Enterovirus Not Detected (Not Detect); Influenza A Subtype 2009 H1 Not Detected (Not Detect); Influenza B Not Detected (Not Detect); Mycoplasma pneumoniae Not Detected (Not Detect); Parainfluenza Virus 1 Not Detected (Not Detect); Parainfluenza Virus 2 Not Detected (Not Detect); Parainfluenza Virus 3 Not Detected (Not Detect); Parainfluenza Virus 4 Not Detected (Not Detect); Respiratory Syncytial Virus Not Detected (Not Detect); SARS-CoV-2 Not Detected (Not Detect)
[2021-02-25] MEDS ORDERED: 0.9 % Sodium Chloride 500 ML IVC ONE (14:14)
[2021-02-25] MEDS: Vancomycin 1,250 MG/262.5 ML IV.SOLN IVPB SCH (15:04)
[2021-02-25] MEDS: Piperacillin/Tazobactam 3.375 GM in 0.9 % Sodium Chloride Mini Bag 100 ML IVPB SCH ×2 (17:30→23:51)
[2021-02-25] MEDS: Acetaminophen 325 MG TABLET PO PRN (17:54)
[2021-02-25] MEDS: Gabapentin 300 MG CAPSULE PO SCH (20:04)
[2021-02-25 22:05] LABS: Amorphous Sediment,Urine Few per hpf (None-Few); Bacteria,Urine Few per hpf (None-Few); Bilirubin,Urine Small (Negative); Blood,Urine Small (Negative); Calcium Oxalate Crystals,Urine Present per hpf; Clarity,Urine Turbid (Clear); Color,Urine Orange (Yellow); Glucose,Urine (UA) Normal (Normal); Ketones,Urine Negative (Negative); Leukocyte Esterase,Urine Negative (Negative); Mucus,Urine Few per lpf (None-Few); Nitrite,Urine Negative (Negative); Protein,Urine 70 mg/dL (Neg-Trace); RBC,Urine 0-3 per hpf (0-3); Specific Gravity,Urine 1.028 (1.010-1.025); Squamous Epithelial Cell,Urine Few per hpf (None-Few); WBC,Urine 0-3 per hpf (0-3)
[2021-02-26 03:22] LABS: Hemoglobin 9.8 g/dL (12.9-16.9); Mean Corpuscular HGB Conc 32.7 g/dL (31.6-35.5); Mean Corpuscular Hemoglobin 32.2 pg (28.0-33.3); Mean Corpuscular Volume 98.7 fL (83.0-100.0); Mean Platelet Volume 11.6 fL (9.4-12.4); Platelet Count 107 K/mcL (140-400); Red Blood Count 3.04 M/mcL (4.19-5.50); Red Cell Distribution Width 13.7 % (11.5-14.5)
[2021-02-26 03:35] LABS: Alanine Aminotransferase 26 Units/L (7-52); Albumin 3.2 g/dL (3.5-5.7); Albumin/Globulin Ratio 0.9 (1.1-2.2); Alkaline Phosphatase 80 Units/L (34-104); Aspartate Amino Transferase 40 Units/L (13-39); BUN/Creatinine Ratio 17 (6-26); Bilirubin,Total 0.9 mg/dL (0.3-1.0); Blood Urea Nitrogen 22 mg/dL (8-23); Calcium 8.3 mg/dL (8.6-10.3); Carbon Dioxide 20 mEq/L (23-29); Chloride 104 mEq/L (98-107); Globulin 3.6 g/dL (2.4-3.5); Glucose 82 mg/dL (70-105); Osmolality,Calculated 278 (280-300); Potassium 4.2 mEq/L (3.5-5.1); Sodium 133 mEq/L (136-145); Total Protein 6.8 g/dL (6.4-8.9); eGFR For African Americans > 60 (> 60); eGFR For Non-African Americans 55 (> 60)
[2021-02-26] MEDS: *HR* HYDROcodone/Acet 5/325 mg TABLET PO PRN ×2 (05:09→17:41)
[2021-02-26] MEDS: Loratadine 10 MG TABLET PO SCH (08:38)
[2021-02-26] MEDS: clonazePAM 1 MG TABLET PO SCH ×3 (08:38→19:50)
[2021-02-26] MEDS: Piperacillin/Tazobactam 3.375 GM in 0.9 % Sodium Chloride Mini Bag 100 ML IVPB SCH ×3 (08:38→23:39)
[2021-02-26] MEDS: Aspirin Enteric Coated 81 MG Tablet PO SCH (08:38)
[2021-02-26] MEDS: Acetaminophen 325 MG TABLET PO PRN (08:38)
[2021-02-26] MEDS: BuPROPion XL (24 HR) 150 MG TABLET PO SCH (08:38)
[2021-02-26] MEDS: Venlafaxine XR (24 HR) 75 MG CAP.ER.24H PO SCH (08:39)
[2021-02-26] MEDS: Vancomycin 1,500 MG/265 ML IV.SOLN IVPB SCH (14:43)
[2021-02-26 17:21] LABS: Amorphous Sediment,Urine Few per hpf (None-Few); Bilirubin,Urine Negative (Negative); Blood,Urine Small (Negative); Clarity,Urine Clear (Clear); Color,Urine Yellow (Yellow); Glucose,Urine (UA) Normal (Normal); Ketones,Urine Negative (Negative); Leukocyte Esterase,Urine Negative (Negative); Nitrite,Urine Negative (Negative); PH,Urine 5.5 pH Units (5.0-8.0); Protein,Urine Trace mg/dL (Neg-Trace); RBC,Urine 0-3 per hpf (0-3); Specific Gravity,Urine 1.012 (1.010-1.025); Urobilinogen,Urine Normal (Normal); WBC,Urine 0-3 per hpf (0-3)
[2021-02-26] MEDS: Gabapentin 300 MG CAPSULE PO SCH (19:50)
[2021-02-27 05:16] LABS: Hematocrit 28.8 % (37.5-50.1)
[2021-02-27 05:18] LABS: Hemoglobin 9.2 g/dL (12.9-16.9); Mean Corpuscular HGB Conc 31.9 g/dL (31.6-35.5); Mean Corpuscular Hemoglobin 30.5 pg (28.0-33.3); Mean Corpuscular Volume 95.4 fL (83.0-100.0); Mean Platelet Volume 10.2 fL (9.4-12.4); Platelet Count 127 K/mcL (140-400); Red Blood Count 3.02 M/mcL (4.19-5.50); Red Cell Distribution Width 13.7 % (11.5-14.5); White Blood Count 1.3 K/mcL (4.3-11.1)
[2021-02-27 05:31] LABS: Alanine Aminotransferase 28 Units/L (7-52); Albumin 2.8 g/dL (3.5-5.7); Albumin/Globulin Ratio 0.8 (1.1-2.2); Alkaline Phosphatase 71 Units/L (34-104); Aspartate Amino Transferase 33 Units/L (13-39); BUN/Creatinine Ratio 17 (6-26); Bilirubin,Total 0.6 mg/dL (0.3-1.0); Blood Urea Nitrogen 21 mg/dL (8-23); Calcium 8.1 mg/dL (8.6-10.3); Carbon Dioxide 24 mEq/L (23-29); Chloride 106 mEq/L (98-107); Globulin 3.4 g/dL (2.4-3.5); Glucose 92 mg/dL (70-105); Osmolality,Calculated 285 (280-300); Potassium 3.8 mEq/L (3.5-5.1); Sodium 136 mEq/L (136-145); Total Protein 6.2 g/dL (6.4-8.9); eGFR For African Americans > 60 (> 60); eGFR For Non-African Americans 58 (> 60)
[2021-02-27 08:40] LABS: Beta Globulin (PEP) 0.73 g/dL (0.48-1.10)
[2021-02-27] MEDS: Piperacillin/Tazobactam 3.375 GM in 0.9 % Sodium Chloride Mini Bag 100 ML IVPB SCH ×2 (08:59→15:26)
[2021-02-27] MEDS: Aspirin Enteric Coated 81 MG Tablet PO SCH (08:59)
[2021-02-27] MEDS: clonazePAM 1 MG TABLET PO SCH ×3 (09:00→19:52)
[2021-02-27] MEDS: Venlafaxine XR (24 HR) 75 MG CAP.ER.24H PO SCH (09:00)
[2021-02-27] MEDS: BuPROPion XL (24 HR) 150 MG TABLET PO SCH (09:00)
[2021-02-27] MEDS: Loratadine 10 MG TABLET PO SCH (09:00)
[2021-02-27 10:05] LABS: IFE Reflexed IFE Done; Immunoglobulin A 371 mg/dL (68-408); Immunoglobulin G 1425 mg/dL (768-1632); Immunoglobulin M 55 mg/dL (35-263)
[2021-02-27] MEDS: Vancomycin 1,500 MG/265 ML IV.SOLN IVPB SCH (13:34)
[2021-02-27] MEDS: Gabapentin 300 MG CAPSULE PO SCH (19:52)
[2021-02-27] MEDS: Melatonin 3 MG TABLET PO PRN (19:52)
[2021-02-28] MEDS: Piperacillin/Tazobactam 3.375 GM in 0.9 % Sodium Chloride Mini Bag 100 ML IVPB SCH ×3 (00:08→16:23)
[2021-02-28] MEDS: *HR* Enoxaparin 40 MG/0.4 ML SYRINGE SQ SCH (05:08)
[2021-02-28 05:50] LABS: Mean Corpuscular Hemoglobin 30.6 pg (28.0-33.3)
[2021-02-28 05:51] LABS: Hematocrit 30.8 % (37.5-50.1); Hemoglobin 9.9 g/dL (12.9-16.9); Mean Corpuscular HGB Conc 32.1 g/dL (31.6-35.5); Mean Corpuscular Volume 95.1 fL (83.0-100.0); Mean Platelet Volume 10.3 fL (9.4-12.4); Platelet Count 156 K/mcL (140-400); Red Blood Count 3.24 M/mcL (4.19-5.50); Red Cell Distribution Width 13.9 % (11.5-14.5); White Blood Count 1.8 K/mcL (4.3-11.1)
[2021-02-28 06:10] LABS: Alanine Aminotransferase 28 Units/L (7-52); Albumin/Globulin Ratio 0.9 (1.1-2.2); Alkaline Phosphatase 80 Units/L (34-104); Aspartate Amino Transferase 29 Units/L (13-39); BUN/Creatinine Ratio 13 (6-26); Bilirubin,Total 0.7 mg/dL (0.3-1.0); Blood Urea Nitrogen 15 mg/dL (8-23); Calcium 8.5 mg/dL (8.6-10.3); Carbon Dioxide 23 mEq/L (23-29); Chloride 110 mEq/L (98-107); Globulin 3.5 g/dL (2.4-3.5); Glucose 90 mg/dL (70-105); Osmolality,Calculated 288 (280-300); Potassium 3.8 mEq/L (3.5-5.1); Sodium 139 mEq/L (136-145); Total Protein 6.5 g/dL (6.4-8.9); eGFR For African Americans > 60 (> 60); eGFR For Non-African Americans > 60 (> 60)
[2021-02-28] MEDS: BuPROPion XL (24 HR) 150 MG TABLET PO SCH (07:32)
[2021-02-28] MEDS: Aspirin Enteric Coated 81 MG Tablet PO SCH (07:33)
[2021-02-28] MEDS: Venlafaxine XR (24 HR) 75 MG CAP.ER.24H PO SCH (07:33)
[2021-02-28] MEDS: clonazePAM 1 MG TABLET PO SCH ×3 (07:33→20:23)
[2021-02-28] MEDS: Loratadine 10 MG TABLET PO SCH (07:33)
[2021-02-28] MEDS: Gabapentin 300 MG CAPSULE PO SCH (20:23)
[2021-03-01] MEDS: Piperacillin/Tazobactam 3.375 GM in 0.9 % Sodium Chloride Mini Bag 100 ML IVPB SCH ×2 (00:22→09:18)
[2021-03-01] MEDS: *HR* Enoxaparin 40 MG/0.4 ML SYRINGE SQ SCH (06:30)
[2021-03-01] MEDS: Aspirin Enteric Coated 81 MG Tablet PO SCH (09:18)
[2021-03-01] MEDS: Venlafaxine XR (24 HR) 75 MG CAP.ER.24H PO SCH (09:18)
[2021-03-01] MEDS: Loratadine 10 MG TABLET PO SCH (09:18)
[2021-03-01] MEDS: BuPROPion XL (24 HR) 150 MG TABLET PO SCH (09:18)
[2021-03-01] MEDS: clonazePAM 1 MG TABLET PO SCH ×2 (09:19→14:17)
[2021-03-01 10:36] VITALS: BP 129/78; PULSE 62; TEMP 97.6; O2SAT 96
[2021-03-01] MEDS: Nystatin SUSP 5 ML UD.LIQ PO SCH ×2 (11:51→14:17)
[2021-03-01 16:41] LABS: Basophils % 0.8 %; Hematocrit 28.8 % (37.5-50.1); Hemoglobin 9.5 g/dL (12.9-16.9); Immature Granulocytes % 2.9 % (0-4); Lymphocytes # 1.3 K/mcL (0.6-4.6); Lymphocytes % 52.3 %; Mean Corpuscular Hemoglobin 30.7 pg (28.0-33.3); Mean Corpuscular Volume 93.2 fL (83.0-100.0); Mean Platelet Volume 9.9 fL (9.4-12.4); Monocytes # 0.3 K/mcL (0.0-1.3); Monocytes % 13.2 %; Platelet Count 170 K/mcL (140-400); Red Blood Count 3.09 M/mcL (4.19-5.50); Segmented Neutrophils % 30.8 %; White Blood Count 2.4 K/mcL (4.3-11.1)
[2021-03-01 16:48] LABS: Neutrophils # 0.7 K/mcL (1.6-8.9)
[2021-03-01 17:03] LABS: Large Platelets Present (Not Present); Platelet Estimate Normal (Normal)
== END 2021-03-01 16:34 | DRG 871 ==
LOC: EMEROOARM 15:02 → 3ANU 15:02 → SUATTDRO 22:19 → 3ANU 23:05 → SUATTDRO 02-23 19:17
PROVIDERS: ADMIT Family Medicine; ATTEND Internal Medicine

== ENCOUNTER 2022-02-10 14:51 | Inpatient (IN) ==
[2022-02-10 15:50] LABS: Basophils % 0.4 %; Eosinophils % 0.9 %; Hematocrit 30.9 % (37.5-50.1); Hemoglobin 10.5 g/dL (12.9-16.9); Immature Granulocytes % 0.2 % (0-4); Immature Platelets 9.2 % (1.1-6.1); Lymphocytes # 0.9 K/mcL (0.6-4.6); Lymphocytes % 20.6 %; Mean Corpuscular Hemoglobin 31.5 pg (28.0-33.3); Mean Corpuscular Volume 92.8 fL (83.0-100.0); Mean Platelet Volume 11.3 fL (9.4-12.4); Monocytes # 0.4 K/mcL (0.0-1.3); Monocytes % 7.9 %; Neutrophils # 3.2 K/mcL (1.6-8.9); Platelet Count 108 K/mcL (140-400); Red Blood Count 3.33 M/mcL (4.19-5.50); Red Cell Distribution Width 14.2 % (11.5-14.5); White Blood Count 4.6 K/mcL (4.3-11.1)
[2022-02-10 16:04] LABS: Activated Partial Thrombo Time 30.5 Seconds (26.0-36.0)
[2022-02-10 16:05] LABS: INR 1.1; Prothrombin Time 12.6 Seconds (9.4-12.1)
[2022-02-10 16:10] LABS: Alanine Aminotransferase 38 Units/L (7-52); Albumin 3.5 g/dL (3.5-5.7); Albumin/Globulin Ratio 1.1 (1.1-2.2); Alkaline Phosphatase 71 Units/L (34-104); Aspartate Amino Transferase 50 Units/L (13-39); BUN/Creatinine Ratio 16 (6-26); Bilirubin,Direct 0.2 mg/dL (0.0-0.2); Bilirubin,Indirect 0.3 mg/dL (0.0-1.0); Bilirubin,Total 0.5 mg/dL (0.3-1.0); Blood Urea Nitrogen 19 mg/dL (8-23); Calcium 8.8 mg/dL (8.6-10.3); Carbon Dioxide 25 mEq/L (23-29); Chloride 103 mEq/L (98-107); Ethanol < 10 mg/dL (Less than 10); Globulin 3.3 g/dL (2.4-3.5); Glucose 75 mg/dL (70-105); Osmolality,Calculated 283 (280-300); Sodium 136 mEq/L (136-145); Total Protein 6.8 g/dL (6.4-8.9); Troponin I < 0.03 ng/mL (< 0.04); eGFR For African Americans > 60 (> 60); eGFR For Non-African Americans 58 (> 60)
[2022-02-10 16:12] LABS: Bilirubin,Urine Negative (Negative); Blood,Urine Trace (Negative); Clarity,Urine Clear (Clear); Color,Urine Yellow (Yellow); Glucose,Urine (UA) Normal (Normal); Ketones,Urine Negative (Negative); Leukocyte Esterase,Urine Negative (Negative); Mucus,Urine Few per lpf (None-Few); Nitrite,Urine Negative (Negative); Protein,Urine 50 mg/dL (Neg-Trace); Specific Gravity,Urine 1.023 (1.010-1.025); WBC,Urine 0-3 per hpf (0-3)
[2022-02-10] MEDS ORDERED: 0.9 % Sodium Chloride 1,000 ML IVC ONE (16:50)
[2022-02-10 17:12] LABS: Magnesium 1.7 mg/dL (1.6-2.6)
[2022-02-10] MEDS ORDERED: Melatonin 3 MG TABLET PO PRN (17:57)
[2022-02-10] MEDS ORDERED: Ondansetron 4 MG/2 ML VIAL IVP PRN (17:57)
[2022-02-10 18:07] LABS: Thyroid Stimulating Hormone 5.143 mcIU/mL (0.340-5.600)
[2022-02-10] MEDS: sulfaSALAzine 500 MG TABLET PO SCH (20:13)
[2022-02-10] MEDS: clonazePAM 1 MG TABLET PO SCH (20:13)
[2022-02-11 02:15] LABS: Hemoglobin 10.4 g/dL (12.9-16.9)
[2022-02-11 02:17] LABS: Hematocrit 30.9 % (37.5-50.1); Immature Platelets 9.1 % (1.1-6.1); Mean Corpuscular HGB Conc 33.7 g/dL (31.6-35.5); Mean Corpuscular Hemoglobin 31.2 pg (28.0-33.3); Mean Corpuscular Volume 92.8 fL (83.0-100.0); Mean Platelet Volume 11.5 fL (9.4-12.4); Red Blood Count 3.33 M/mcL (4.19-5.50); Red Cell Distribution Width 14.1 % (11.5-14.5); White Blood Count 4.4 K/mcL (4.3-11.1)
[2022-02-11 02:28] LABS: INR 1.2
[2022-02-11 02:31] LABS: BUN/Creatinine Ratio 14 (6-26); Blood Urea Nitrogen 16 mg/dL (8-23); Calcium 8.1 mg/dL (8.6-10.3); Carbon Dioxide 23 mEq/L (23-29); Chloride 106 mEq/L (98-107); Glucose 96 mg/dL (70-105); Magnesium 1.5 mg/dL (1.6-2.6); Osmolality,Calculated 283 (280-300); Phosphorous 2.4 mg/dL (2.7-4.5); Potassium 3.5 mEq/L (3.5-5.1); Sodium 136 mEq/L (136-145); eGFR For African Americans > 60 (> 60); eGFR For Non-African Americans > 60 (> 60)
[2022-02-11] MEDS: sulfaSALAzine 500 MG TABLET PO SCH ×2 (08:50→19:46)
[2022-02-11] MEDS: BuPROPion XL (24 HR) 150 MG TABLET PO SCH (08:51)
[2022-02-11] MEDS: clonazePAM 1 MG TABLET PO SCH ×2 (08:51→19:46)
[2022-02-11] MEDS ORDERED: 0.9 % Sodium Chloride 1,000 ML IVC ONE (11:05)
[2022-02-11] MEDS: Acetaminophen 325 MG TABLET PO PRN (19:46)
[2022-02-12] MEDS: *HR* Enoxaparin 40 MG/0.4 ML SYRINGE SQ SCH (05:48)
[2022-02-12] MEDS: BuPROPion XL (24 HR) 150 MG TABLET PO SCH (08:48)
[2022-02-12] MEDS: sulfaSALAzine 500 MG TABLET PO SCH ×2 (08:49→20:58)
[2022-02-12] MEDS: clonazePAM 1 MG TABLET PO SCH ×2 (08:49→20:57)
[2022-02-12] MEDS: Acetaminophen 325 MG TABLET PO PRN ×2 (15:32→23:07)
[2022-02-12 19:41] LABS: Bilirubin,Urine Negative (Negative); Blood,Urine Trace (Negative); Clarity,Urine Clear (Clear); Color,Urine Yellow (Yellow); Glucose,Urine (UA) Normal (Normal); Ketones,Urine Negative (Negative); Leukocyte Esterase,Urine Moderate (Negative); Mucus,Urine Few per lpf (None-Few); Nitrite,Urine Negative (Negative); Protein,Urine 30 mg/dL (Neg-Trace)
[2022-02-13] MEDS: *HR* Enoxaparin 40 MG/0.4 ML SYRINGE SQ SCH (05:25)
[2022-02-13] MEDS: sulfaSALAzine 500 MG TABLET PO SCH ×2 (07:58→20:23)
[2022-02-13] MEDS: clonazePAM 1 MG TABLET PO SCH ×2 (07:58→20:23)
[2022-02-13] MEDS: BuPROPion XL (24 HR) 150 MG TABLET PO SCH (07:58)
[2022-02-13 09:30] LABS: Adenovirus Not Detected (Not Detect); Bordetella Pertussis Not Detected (Not Detect); Chlamydophila pneumoniae Not Detected (Not Detect); Coronavirus 229E Not Detected (Not Detect); Coronavirus HKU1 Not Detected (Not Detect); Coronavirus NL63 Not Detected (Not Detect); Coronavirus OC43 Not Detected (Not Detect); Human Metapneumovirus Not Detected (Not Detect); Human Rhinovirus/Enterovirus Not Detected (Not Detect); Influenza A Subtype 2009 H1 Not Detected (Not Detect); Influenza B Not Detected (Not Detect); Mycoplasma pneumoniae Not Detected (Not Detect); Parainfluenza Virus 1 Not Detected (Not Detect); Parainfluenza Virus 2 Not Detected (Not Detect); Parainfluenza Virus 3 Not Detected (Not Detect); Parainfluenza Virus 4 Not Detected (Not Detect); Respiratory Syncytial Virus Not Detected (Not Detect); SARS-CoV-2 Not Detected (Not Detect)
[2022-02-14] MEDS: Acetaminophen 325 MG TABLET PO PRN (03:56)
[2022-02-14] MEDS: *HR* Enoxaparin 40 MG/0.4 ML SYRINGE SQ SCH (06:07)
[2022-02-14 06:22] VITALS: BP 103/62; PULSE 67; TEMP 98.3; O2SAT 95
[2022-02-14] MEDS: clonazePAM 1 MG TABLET PO SCH (08:43)
[2022-02-14] MEDS: BuPROPion XL (24 HR) 150 MG TABLET PO SCH (08:44)
[2022-02-14] MEDS: sulfaSALAzine 500 MG TABLET PO SCH (08:44)
== END 2022-02-14 13:00 | DRG 640 ==
LOC: EMEROOARM 14:51 → 3BNU 14:51 → SUATTDRO 17:41 → 3BNU 18:46 → SUATTDRO 02-11 18:58
PROVIDERS: ADMIT Internal Medicine; ATTEND Internal Medicine